=== PATIENT | female | born 1990 | race Caucasian/White ===

== ENCOUNTER 2020-08-13 09:33 | Emergency (ER) | payer OTHER ==
[2020-08-13 09:50] VITALS: BP 118/73
--- NOTE | 2020-08-13 09:50 | ED Physician Documentation ---
PD HPI SKIN - Stated complaint Stated Complaint: FEMALE - Chief complaint Chief Complaint: Wound - History obtained from History obtained from: Patient - History of Present Illness Timing - onset: How many weeks ago (1) Timing - duration: Weeks (1) Timing - details: Gradual onset, Still present Location: Other (above the anus) Quality / character: Itchy, Burning, Discolored. No: Vesicular, Crusted Associated symptoms: No: Fever, Myalgias, Joint pain Similar symptoms before: Has not had sx before Recently seen: Not recently seen - Additional information Additional information: 30-year-old female reports a one-week history of an area right above her anus that is reddened and itchy and burning.This is been present for about 1 week and has not resolved. She has not had this previously. She states she feels like this is something similar to what her baby has with a diaper rash. Review of Systems Constitutional: denies: Fever Ears: denies: Ear pain Nose: denies: Congestion Throat: denies: Sore throat Respiratory: denies: Dyspnea, Cough GI: denies: Vomiting : denies: Dysuria PD PAST MEDICAL HISTORY - Present Medications Home Medications: Ambulatory Orders Medication Instructions Recorded Confirmed Fluconazole [Diflucan] 150 mg PO ONCE #2 tablet 08/13/20 - Allergies Allergies/Adverse Reactions: Allergies Allergy/AdvReac Type Severity Reaction Status Date / Time No Known Drug Allergies Allergy Verified 08/13/20 09:38 PD ED PE NORMAL - Vitals Vital signs reviewed: Yes (normal ) - General General: Alert and oriented X 3, No acute distress, Well developed/nourished - HEENT HEENT: Atraumatic, PERRL, EOMI - Respiratory Respiratory: No respiratory distress - 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 ) - Back Back: No CVA TTP, No spinal TTP - Derm Derm: Normal color, Warm and dry, No rash - Extremities Extremities: No deformity, No edema, No calf tenderness / cord - Neuro Neuro: No motor deficit, No sensory deficit Eye Opening: Spontaneous Motor: Obeys Commands Verbal: Oriented GCS Score: 15 - Psych Psych: Normal mood, Normal affect Results - Vitals Vitals: Vital Signs - 24 hr 08/13/20 09:36 Temperature 36.8 C Heart Rate 63 Respiratory 15 Rate Blood Pressure 118/73 O2 Saturation 100 Oxygen O2 Source Room air PD MEDICAL DECISION MAKING - ED course Complexity details: considered differential, d/w patient ED course: Looks like a yeast dermatitis we will place the patient on some Diflucan. Departure - Departure Disposition: Home, Self Care Clinical Impression: Yeast dermatitis Condition: Stable Instructions: ED Diaper Rash Infec Fungal Follow-Up: [facility] [Provider Group] Prescriptions: Fluconazole [Diflucan] 150 mg PO ONCE #2 tablet
== END 2020-08-13 10:05 | disposition home or self-care (01) ==
LOC: ED 09:33
DX: L30.9 Dermatitis, unspecified (principal); B37.2 Candidiasis of skin and nail
CPT/HCPCS: 99282; 99284

== ENCOUNTER 2020-11-28 08:00 | Outpatient (CLI) | payer OTHER ==
[2020-11-28 19:37] LABS: MUDS CUTOFF CONCENTRATIONS CUTOFF CONC BELOW:
[2020-11-28 19:42] LABS: BILIRUBIN,URINE NEGATIVE (NEGATIVE); GLUCOSE, URINE (UA) NEGATIVE (NEGATIVE); KETONES,URINE (UA) NEGATIVE (NEGATIVE); LEUKOCYTE ESTERASE, URINE NEGATIVE (NEGATIVE); NITRITE,URINE NEGATIVE (NEGATIVE); OCCULT BLOOD,URINE NEGATIVE (NEGATIVE); PH,URINE 5.5 PH (5.0-7.5); PROTEIN,URINE NEGATIVE (NEGATIVE); UROBILINOGEN,URINE 0.2 (NORMAL) E.U./dL (NORMAL)
[2020-11-28 19:44] LABS: CLARITY,URINE CLEAR (CLEAR)
[2020-11-28 19:55] LABS: AMPHETAMINE SCREEN,URINE NEGATIVE (NEGATIVE); BENZODIAZEPINES SCREEN, URINE NEGATIVE (NEGATIVE); COCAINE SCREEN URINE NEGATIVE (NEGATIVE); METHADONE SCREEN, URINE NEGATIVE (NEGATIVE); METHAMPHETAMINES SCREEN, URINE NEGATIVE (NEGATIVE); OPIATE SCREEN, URINE NEGATIVE (NEGATIVE); OXYCODONE SCREEN, URINE NEGATIVE (NEGATIVE); PROPOXYPHENE SCREEN, URINE NEGATIVE (NEGATIVE); TRICYCLIC ANTIDEPRESSANT,URINE NEGATIVE (NEGATIVE)
[2020-11-28 20:00] LABS: BACTERIA,URINE Rare /HPF (None Seen); RBC,URINE 0-5 /HPF (0-5); SQUAMOUS EPITHELIAL CELL,UR FEW Squamous (<= Few)
[2020-11-29 00:17] LABS: TRICHOMONAS VAGINALIS DNA NEGATIVE (NEGATIVE)
[2020-11-29 00:30] LABS: CANDIDA GROUP DNA NEGATIVE (NEGATIVE); CANDIDA KRUSEI DNA NEGATIVE (NEGATIVE); TRICHOMONAS VAGINALIS DNA NEGATIVE (NEGATIVE)
== END 2020-11-28 23:59 | disposition home or self-care (01) ==
LOC: LAB.R 08:00
PROVIDERS: ATTEND Nurse Practitioner Obstetrics & Gynecology
DX: Z32.01 Encounter for pregnancy test, result positive (principal); N89.8 Other specified noninflammatory disorders of vagina
CPT/HCPCS: 80306; 81001; 87086; 87491; 87591; 87661; 87801

== ENCOUNTER 2020-12-02 13:59 | Outpatient (CLI) | payer OTHER | END 2020-12-02 14:00 | disposition home or self-care (01) | LOC: LAB.N 13:59 | PROVIDERS: ATTEND Nurse Practitioner Obstetrics & Gynecology | DX: Z32.01 Encounter for pregnancy test, result positive (principal); Z86.39 Personal history of other endocrine, nutritional and metabolic disease | CPT/HCPCS: 36415; 84443 ==

== ENCOUNTER 2020-12-23 12:27 | Outpatient (CLI) | payer OTHER ==
--- NOTE | 2020-12-23 14:04 | Ultrasound Report ---
PROCEDURE: OB First Trimester w/TV INDICATIONS: POSITIVE TEST OUTSIDE/PRIOR DATING DATA: Last menstrual period (LMP): 10/28/2020. LMP-based estimated date of delivery (HIPOLITO): 08/04/2021. First dating scan (date and location): 12/23/2020. Estimated date of delivery (HIPOLITO) from first dating scan: 08/09/2021. TECHNIQUE: Real-time scanning was performed of the fetus and maternal pelvic organs, with image documentation. Endovaginal scanning was also performed to better visualize the fetus and maternal ovaries. COMPARISON: FINDINGS: Embryo: There is a gestational sac in the uterine fundus measuring 3.4 cm in mean sac diameter (daria esponding to a gestational age of 8 weeks 4 days). Within the gestational sac there is a fetus measur ing 1.1 cm (corresponding to a gestational age of 7 weeks 2 days). heart rate is detected at 13 5 bpm. Maternal organs: Ovaries are normal. Right corpus luteum cyst noted. Hypoechoic focus in the uterus adjacent to the placenta measuring 2.2 cm. IMPRESSION: Single live intrauterine gestation with average ultrasound age of 7 weeks 2 days. Focal hypoechoic region in the uterus adjacent to the placenta could represent a subchorionic hemorrh age, of indeterminate clinical significance at this gestational age. Reviewed by: Maco Aldrich MD on 12/23/2020 2:03 PM PST Approved by: Maco Aldrich MD on 12/23/2020 2:03 PM PST Station ID: [id number]
== END 2020-12-23 12:28 | disposition home or self-care (01) ==
LOC: DI 12:27
PROVIDERS: ATTEND Nurse Practitioner Obstetrics & Gynecology
DX: Z32.01 Encounter for pregnancy test, result positive (principal)

== ENCOUNTER 2021-01-12 14:33 | Outpatient (CLI) | payer OTHER ==
[2021-01-12 18:21] LABS: BASOPHILS % (AUTO) 0.3 %; EOSINOPHILS # (AUTO) 0.4 10^3/uL (0.0-0.7); HCT - HEMATOCRIT 36.5 % (37.0-47.0); HGB - HEMOGLOBIN 12.1 g/dL (12.0-16.0); LYMPHOCYTES # (AUTO) 2.3 10^3/uL (1.5-3.5); LYMPHOCYTES % (AUTO) 23.8 %; MEAN CORPUSCULAR HEMOGLOBIN 29.2 pg (27.0-31.0); MEAN CORPUSCULAR HGB CONC 33.2 g/dL (32.0-36.0); MEAN CORPUSCULAR VOLUME 88.2 fL (81.0-99.0); MEAN PLATELET VOLUME 9.7 fL (7.9-10.8); MONOCYTES # (AUTO) 0.5 10^3/uL (0.0-1.0); MONOCYTES % (AUTO) 5.6 %; NEUTROPHILS # (AUTO) 6.2 10^3/uL (1.5-6.6); NEUTROPHILS % (AUTO) 65.1 %; PLT - PLATELET COUNT 380 10^3/uL (130-450); RED BLOOD COUNT 4.14 10^6/uL (4.20-5.40); WHITE BLOOD COUNT 9.5 x10^3/uL (4.8-10.8)
[2021-01-13 12:25] LABS: HEPATITIS B SURFACE ANTIGEN NON-REACTIVE (NON-REACTIVE); HEPATITIS C ANTIBODY NON-REACTIVE (NON-REACTIVE)
[2021-01-13 15:51] LABS: HIV AG/AB 4TH GEN NON-REACTIVE (NON-REACTIVE)
== END 2021-01-12 14:34 | disposition home or self-care (01) ==
LOC: LAB.N 14:33
PROVIDERS: ATTEND Advanced Practice Midwife
DX: Z34.90 Encounter for supervision of normal pregnancy, unspecified, unspecified trimester (principal); Z36.89 Encounter for other specified antenatal screening
CPT/HCPCS: 36415; 85025; 86592; 86762; 86787; 86803; 86850; 86900; 86901; 87340; 87389

== ENCOUNTER 2021-01-21 21:06 | Emergency (ER) | payer OTHER ==
--- NOTE | 2021-01-21 21:34 | ED Physician Documentation ---
PD HPI NVD - Stated complaint Stated Complaint: VOMITING - Chief complaint Chief Complaint: General - History obtained from History obtained from: Patient - History of Present Illness Timing - onset: Today (tonight) Timing - details: Abrupt onset Pain level max: 0 Pain level now: 0 Associated symptoms: Hematemesis. No: Fever, Abdominal pain Recently seen: Not recently seen - Additonal information Additional information: patient is 12.5 weeks , has had US in this demonstrating IUP (per patient) and has had recurrent nausea/vomiting in this . tonight she had two episodes of hematemesis. She denies abdominal pain and on HPI/ROS she denies having nausea at this time Review of Systems Constitutional: denies: Fever, Chills, Sweats Cardiac: reports: Reviewed and negative Respiratory: reports: Reviewed and negative GI: reports: Nausea, Vomiting, Hematemesis. denies: Abdominal Pain, Abdominal Swelling, Constipation, Diarrhea, Bloody / black stool : reports: Now EGA (12.5 weeks). denies: Dysuria, Frequency, Vaginal bleeding PD PAST MEDICAL HISTORY - Past Medical History Past Medical History: No - Past Surgical History Past Surgical History: No - Present Medications Home Medications: Ambulatory Orders Medication Instructions Recorded Confirmed Meclizine HCl [Antivert] 25 mg PO PRN PRN 01/21/21 01/21/21 Ondansetron Odt [Zofran Odt] 4 mg TL Q6H PRN 01/21/21 01/21/21 - Allergies Allergies/Adverse Reactions: Allergies Allergy/AdvReac Type Severity Reaction Status Date / Time No Known Drug Allergies Allergy Verified 01/21/21 21:24 - Social History Does the pt smoke?: No Smoking Status: Never smoker Does the pt drink ETOH?: Yes Does the pt have substance abuse?: No - Immunizations Immunizations are current?: Yes - POLST Patient has POLST: No PD ED PE NORMAL - Vitals Vital signs reviewed: Yes - General General: Alert and oriented X 3, No acute distress, Well developed/nourished - Cardiac Cardiac: RRR, No murmur - Respiratory Respiratory: No respiratory distress, Clear bilaterally - Abdomen Abdomen: Soft, Non tender, Non distended - Back Back: No CVA TTP Results - Vitals Vitals: Vital Signs - 24 hr 01/21/21 01/21/21 01/21/21 21:14 21:31 23:41 Temperature 36.9 C 36.9 C Heart Rate 92 92 64 Respiratory 18 18 18 Rate Blood Pressure 117/81 H 117/81 H 106/77 O2 Saturation 99 99 100 Oxygen O2 Source Room air - Labs Labs: Laboratory Tests 01/21/21 01/21/21 01/21/21 22:00 22:11 22:11 WBC 10.5 RBC 4.34 Hgb 12.7 Hct 37.8 MCV 87.1 MCH 29.3 MCHC 33.6 RDW 13.2 Plt Count 379 MPV 9.2 Neut # (Auto) 7.4 H Lymph # (Auto) 2.3 [place] # (Auto) 0.5 Eos # (Auto) 0.3 Baso # (Auto) 0.0 Absolute Nucleated RBC 0.00 Nucleated RBC % 0.0 Sodium 135 Potassium 3.4 L Chloride 100 L Carbon Dioxide 24 Anion Gap 11.0 BUN 8 Creatinine 0.5 Estimated GFR (MDRD) 145 Glucose 103 H Calcium 9.2 Total Bilirubin 0.4 AST 14 ALT 16 Alkaline Phosphatase 39 L Total Protein 7.5 Albumin 3.9 Globulin 3.6 Albumin/Globulin Ratio 1.1 Lipase 25 Urine Color YELLOW Urine Clarity CLEAR Urine pH 6.0 Ur Specific Rosine 1.025 Urine Protein NEGATIVE Urine Glucose (UA) NEGATIVE Urine Ketones TRACE Urine Occult Blood NEGATIVE Urine Nitrite NEGATIVE Urine Bilirubin NEGATIVE Urine Urobilinogen 0.2 (NORMAL) Ur Leukocyte Esterase NEGATIVE Ur Microscopic Review NOT INDICATED Urine Culture Comments NOT INDICATED PD MEDICAL DECISION MAKING - ED course Complexity details: reviewed results, re-evaluated patient, considered differential, d/w patient ED course: no n/v during ED stay. She is nontender on abdominal exam and in NAD during ED stay. She has reassuring blood tests tonight including normal h/h. Departure - Departure Disposition: 01 Home, Self Care Clinical Impression: Hematemesis Qualifiers: Nausea presence: with nausea Qualified Code(s): K92.0 - Hematemesis Condition: Good Instructions: ED Bleed UGI Stable, ED Nausea Vomiting Follow-Up: Venecia Pearce PA-C [Primary Care Provider] - Discharge Date/Time: 01/21/21 23:41
[2021-01-21] MEDS ORDERED: SODIUM CHLORIDE 0.9% 1,000 ML IV STA (21:52)
[2021-01-21 22:17] LABS: BASOPHILS % (AUTO) 0.4 %; EOSINOPHILS # (AUTO) 0.3 10^3/uL (0.0-0.7); EOSINOPHILS % (AUTO) 2.8 %; HCT - HEMATOCRIT 37.8 % (37.0-47.0); HGB - HEMOGLOBIN 12.7 g/dL (12.0-16.0); LYMPHOCYTES # (AUTO) 2.3 10^3/uL (1.5-3.5); LYMPHOCYTES % (AUTO) 21.5 %; MEAN CORPUSCULAR HEMOGLOBIN 29.3 pg (27.0-31.0); MEAN CORPUSCULAR HGB CONC 33.6 g/dL (32.0-36.0); MEAN CORPUSCULAR VOLUME 87.1 fL (81.0-99.0); MEAN PLATELET VOLUME 9.2 fL (7.9-10.8); MONOCYTES # (AUTO) 0.5 10^3/uL (0.0-1.0); MONOCYTES % (AUTO) 4.8 %; NEUTROPHILS # (AUTO) 7.4 10^3/uL (1.5-6.6); NEUTROPHILS % (AUTO) 70.3 %; PLT - PLATELET COUNT 379 10^3/uL (130-450); RED BLOOD COUNT 4.34 10^6/uL (4.20-5.40); RED CELL DISTRIBUTION WIDTH 13.2 % (12.0-15.0); WHITE BLOOD COUNT 10.5 x10^3/uL (4.8-10.8)
[2021-01-21 22:27] LABS: BILIRUBIN,URINE NEGATIVE (NEGATIVE); CLARITY,URINE CLEAR (CLEAR); GLUCOSE, URINE (UA) NEGATIVE (NEGATIVE); KETONES,URINE (UA) TRACE mg/dL (NEGATIVE); LEUKOCYTE ESTERASE, URINE NEGATIVE (NEGATIVE); NITRITE,URINE NEGATIVE (NEGATIVE); OCCULT BLOOD,URINE NEGATIVE (NEGATIVE); PROTEIN,URINE NEGATIVE (NEGATIVE); UROBILINOGEN,URINE 0.2 (NORMAL) E.U./dL (NORMAL)
[2021-01-21 22:30] LABS: ALBUMIN 3.9 g/dL (3.2-5.5); ALBUMIN/GLOBULIN RATIO 1.1 (1.0-2.2); BILIRUBIN,TOTAL 0.4 mg/dL (0.2-1.0); CALCIUM 9.2 mg/dL (8.5-10.3); CREATININE 0.5 mg/dL (0.4-1.0); POTASSIUM 3.4 mmol/L (3.5-5.0); TOTAL PROTEIN 7.5 g/dL (6.7-8.2)
[2021-01-21 23:42] VITALS: BP 106/77
== END 2021-01-21 23:41 | disposition home or self-care (01) ==
LOC: ED 21:06
DX: O21.9 Vomiting of pregnancy, unspecified (principal); Z3A.12 12 weeks gestation of pregnancy
CPT/HCPCS: 36415; 80053; 81001; 81003; 83690; 85025; 87086; 99282; 99283

== ENCOUNTER 2021-03-20 07:18 | Outpatient (CLI) | payer OTHER ==
--- NOTE | 2021-03-20 16:40 | Ultrasound Report ---
PROCEDURE: OB Detailed Eval INDICATIONS: SUPERVISION OF OUTSIDE/PRIOR DATING DATA: Last menstrual period (LMP): 10/28/2020. LMP-based estimated date of delivery ([facility]IPOLITO): 08/04/2021. First dating scan (date and location): 12/23/2020. Estimated date of delivery ([facility]IPOL[facility]) from first dating scan: 08/09/2021. TECHNIQUE: Real-time scanning was performed of the fetus, with image documentation and biometric measurements. Endovaginal scanning: Not needed COMPARISON: Single prior OB ultrasound studies for this . FINDINGS: General: A single living intrauterine gestation is present. Presentation: Breech Placenta: Placental position is anterior, without previa. Amniotic fluid index: 21.0 cm, normal for gestational age. heart rate: 143 beats per minute. Maternal cervical canal: 4.6 cm long; normal length is 2.5 cm or more. biometrics: Biparietal diameter: Or 0.9 cm, 20 weeks 5 days Head circumference: 18.3 cm, 20 weeks 5 days Abdominal circumference: 16.8 cm, 21 weeks 6 days Femur length: 3.3 cm, 20 weeks 3 days Estimated gestational age from initial scan: 19 weeks 5 days. Composite gestational age from present scan: 20 weeks 6 days Estimated weight and percentile: 401 g, upper 99th percentile. Measurement variability in biometric dating: +/- 10 days from 12-20 weeks gestation, +/- 2 weeks from 20-30 weeks gestation, +/- 3 weeks at 30 weeks gestation or later. Anatomic survey: Neuro: Ventricles are normal at less than 10 mm. Cisterna magna is normal at 3-11 mm. Cerebellum i s normal in size and morphology. Nuchal skin fold: Normal at less than 6 mm between 14 and 20 weeks gestational age. Face: Nose and lips, facial profile are normal. Spine: No evidence for spina bifida. Heart: 4-chambered heart is present, with normal ventricular outflow tracts. Diaphragm: Diaphragm is intact. Stomach: Left-sided stomach is present. Kidneys: No hydronephrosis. Normal is less than 5 mm in 2nd trimester, less than 7 mm in 3rd trimester. Cord: 3 vessel cord has orthotopic insertion. Bladder: Normal in size. Extremities: All 4 extremities are visualized. IMPRESSION: Appropriate interval growth except that the weight is currently estimated at the upper 99th per centile. Please correlate for presence of gestational diabetes and follow-up growth parameters are re commended to be obtained in 2 weeks. Normal amniotic fluid volume. No anomaly seen. Reviewed by: Omer Daugherty MD on 03/20/2021 4:39 PM PDT Approved by: Omer Daugherty MD on 03/20/2021 4:39 PM PDT Station ID: [id number]
== END 2021-03-20 07:19 | disposition home or self-care (01) ==
LOC: DI 07:18
PROVIDERS: ATTEND Nurse Practitioner Obstetrics & Gynecology
DX: Z34.90 Encounter for supervision of normal pregnancy, unspecified, unspecified trimester (principal)

== ENCOUNTER 2021-04-28 11:16 | Outpatient (CLI) | payer OTHER ==
[2021-04-28 13:30] LABS: HGB - HEMOGLOBIN 10.9 g/dL (12.0-16.0); MEAN CORPUSCULAR HEMOGLOBIN 28.8 pg (27.0-31.0); MEAN CORPUSCULAR HGB CONC 32.1 g/dL (32.0-36.0); MEAN CORPUSCULAR VOLUME 89.7 fL (81.0-99.0); MEAN PLATELET VOLUME 9.1 fL (7.9-10.8); RED BLOOD COUNT 3.79 10^6/uL (4.20-5.40); WHITE BLOOD COUNT 11.8 x10^3/uL (4.8-10.8)
== END 2021-04-28 11:17 | disposition home or self-care (01) ==
LOC: LAB 11:16
PROVIDERS: ATTEND Advanced Practice Midwife
DX: Z34.90 Encounter for supervision of normal pregnancy, unspecified, unspecified trimester (principal)
CPT/HCPCS: 36415; 82950; 85027

== ENCOUNTER 2021-05-05 06:11 | Outpatient (CLI) | payer OTHER ==
[2021-05-05 06:47] LABS: GTT GLUCOSE,FASTING 88 mg/dL (70-100)
== END 2021-05-05 06:12 | disposition home or self-care (01) ==
LOC: LAB 06:11
PROVIDERS: ATTEND Advanced Practice Midwife
DX: O99.810 Abnormal glucose complicating pregnancy (principal)
CPT/HCPCS: 36415; 82951; 82952

== ENCOUNTER 2021-06-24 07:27 | Outpatient (CLI) | payer OTHER ==
--- NOTE | 2021-06-24 08:38 | Ultrasound Report ---
PROCEDURE: OB F/U or Repeat INDICATIONS: SIZE/DATE DISCREPANCY OUTSIDE/PRIOR DATING DATA: Last menstrual period (LMP): 10/28/2020. LMP-based estimated date of delivery (HIPOLITO): 08/04/2021. First dating scan (date and location): 12/23/2020. Mitchel Maldonado. Estimated date of delivery ([facility]IPOLITO) from first dating scan: 08/09/2021. The below data below was generated using the provider HIPOLITO of 08/09/2021 TECHNIQUE: Real-time scanning was performed of the fetus, with image documentation and biometric measurements. COMPARISON: None. FINDINGS: General: A single living intrauterine gestation is present. Presentation: Cephalic Placenta: Placental position is anterior, without previa. Amniotic fluid index: 17.2 cm, adequate for gestational age. Largest pocket is 4.7 cm. heart rate: 136 beats per minute. Maternal cervical canal: 4.8 cm long; normal length is 2.5 cm or more. biometrics: Biparietal diameter: 9.4 cm. 38 weeks 2 days Head circumference: 34.1 cm. 39 weeks 2 days Abdominal circumference: 34.2 cm. 38 weeks 0 Femur length: 6.5 cm. 33 weeks 5 days. Estimated gestational age from initial scan: not applicable. Composite gestational age from present scan: 37 weeks 2 days. Estimated weight and percentile: 3145 g. Greater than 99.5 percentile Measurement variability in biometric dating: +/- 10 days from 12-20 weeks gestation, +/- 2 weeks from 20-30 weeks gestation, +/- 3 weeks at 30 weeks gestation or more. Other: Not applicable. IMPRESSION: 1. Estimated gestational age by initial ultrasound 33 weeks 3 days. 2. Composite gestational age by today's ultrasound 37 weeks 2 days. 3. EFW 3145 g (greater than 99.5th percentile.) Reviewed by: Aamir Burdick on 06/24/2021 8:37 AM PDT Approved by: Aamir Burdick on 06/24/2021 8:37 AM PDT Station ID: [id number]
== END 2021-06-24 07:28 | disposition home or self-care (01) ==
LOC: DI 07:27
PROVIDERS: ATTEND Nurse Practitioner Obstetrics & Gynecology
DX: O26.843 Uterine size-date discrepancy, third trimester (principal); Z3A.33 33 weeks gestation of pregnancy

== ENCOUNTER 2021-07-07 10:00 | Outpatient (CLI) | payer OTHER | END 2021-07-07 10:01 | disposition home or self-care (01) | LOC: LAB.WC 10:00 | PROVIDERS: ATTEND Nurse Practitioner Obstetrics & Gynecology | DX: Z36.85 Encounter for antenatal screening for Streptococcus B (principal) | CPT/HCPCS: 87797 ==

== ENCOUNTER 2021-07-21 15:53 | Outpatient (CLI) | payer OTHER ==
--- NOTE | 2021-07-22 11:27 | Ultrasound Report ---
PROCEDURE: OB F/U or Repeat INDICATIONS: UTERINE SIZE/DATE DISCREPANCY OUTSIDE/PRIOR DATING DATA: Last menstrual period (LMP): 10/28/2020. LMP-based estimated date of delivery (HIPOLITO): 08/04/2021. First dating scan (date and location): 12/23/2020. Estimated date of delivery (HIPOLITO) from first dating scan: 08/09/2021. The below data below was generated using the first trimester ultrasound HIPOLITO of 08/09/2021 TECHNIQUE: Real-time scanning was performed of the fetus, with image documentation and biometric measurements. Endovaginal scanning: Not performed COMPARISON: 12/23/2020, 06/24/2021 FINDINGS: General: A single living intrauterine gestation is present. Presentation: Vertex Placenta: Placental position is anterior, without previa. Amniotic fluid index: 17.8 cm, normal for gestational age. Largest pocket is 5.95 cm. heart rate: 133 beats per minute. Maternal cervical canal: Not seen biometrics: Biparietal diameter: 9.9 cm, 40 weeks, 3 days Head circumference: 35.6 cm, 41 weeks, 5 days Abdominal circumference: 37.4 cm, 41 weeks, 2 days Femur length: 7.2 cm, 36 weeks, 6 days Estimated gestational age from initial scan: 37 weeks, 2 days. Composite gestational age from present scan: 40 weeks, 1 day Estimated weight and percentile: 4086 g, 99.5th percentile Measurement variability in biometric dating: +/- 10 days from 12-20 weeks gestation, +/- 2 weeks from 20-30 weeks gestation, +/- 3 weeks at 30 weeks gestation or more. Other: Nuchal cord incidentally noted.. IMPRESSION: 1. Single living intrauterine with a composite gestational age of 40 weeks 1 day, compared to the initially assigned gestational age of 37 weeks, 2 days. 2. Estimated weight is at the 99.5th percentile. 3. Amniotic fluid index is normal. Reviewed by: Alta Villasenor MD on 07/22/2021 11:25 AM PDT Approved by: Alta Villasenor MD on 07/22/2021 11:25 AM PDT Station ID: [id number]
== END 2021-07-21 15:54 | disposition home or self-care (01) ==
LOC: DI 15:53
PROVIDERS: ATTEND Nurse Practitioner Obstetrics & Gynecology
DX: O26.843 Uterine size-date discrepancy, third trimester (principal); Z3A.40 40 weeks gestation of pregnancy

== ENCOUNTER 2021-07-29 08:55 | Observation (INO) | payer OTHER ==
[2021-07-29] MEDS ORDERED: SODIUM CHLORIDE FLUSH 0.9% 10 ML SYRINGE IVP PRN (09:16)
[2021-07-29 09:29] VITALS: BP 114/70
[2021-07-29] MEDS ORDERED: LACTATED RINGERS 1,000 ML IV SCH (10:00)
[2021-07-29] MEDS ORDERED: miSOPROStoL 100 MCG TABLET BC SCH (10:00)
[2021-07-29] MEDS ORDERED: SODIUM CHLORIDE FLUSH 0.9% 10 ML SYRINGE IVP SCH (17:00)
--- NOTE | 2021-07-29 17:28 | PROVIDER PROGRESS NOTE ---
- HPI Chief Complaint: Other Current : Current EDU 08/04/21 Gestation 39 Weeks and 1 Days 3 Para 1 Vital Signs Temperature 36.7 C 07/29/21 09:26 Heart Rate 96 07/29/21 09:26 Respiratory Rate 16 07/29/21 09:26 Blood Pressure 114/70 07/29/21 09:26 O2 Saturation 98 07/29/21 09:26 Temperature 36.7 C 07/29/21 09:43 Heart Rate 96 07/29/21 09:43 Respiratory Rate 16 07/29/21 09:43 Blood Pressure 114/70 07/29/21 09:43 O2 Saturation 98 07/29/21 09:26 - Procedures OB Procedure Performed: NST Diagnosis/Indication for NST: Other NST Procedure: NST Procedure Start Date 07/29/21 Start Time 09:07 Stop Time 09:29 Vibroacoustic Stimulation Used No Patient States Movement Yes - Plan Plan: Ananya is a 31yo @ 39.1wks gestation by LMP c/w 7.2wk U/S who presents today for outpatient cervical ripening with misoprostol. She denies vaginal bleeding or leakage of fluid and she states she has had occasional but very mild contractions. Reports +FM. NST performed 07/29/2021 NST read 07/29/2021 FHR baseline 140, moderate variability, + accels, no decels Contractions palpate mild occasionally with soft resting tone SVE initially deferred. IV access obtained. 50mcg BC misoprostol administered and pt continuously monitored x 4 hours. She began to contract with contractions patter consistently every 2-4 minutes with soft resting tone. Pt states she notices the contractions but rates them 1.5/10 on a pain scale and does not feel they are very strong. She easily talks through the contractions and states she would desire to labor at home for early labor if possible. SVE 1/50/-3 FHR Category I throughout 4 hours. Reviewed labor precautions and warning s/sx for when to present. Pt has emergency contact number. She verbalized understanding and agrees to above plan. She denies further questions or concerns at this time. Pt to return tomorrow morning at 0900 for induction of labor secondary to suspected macrosomia.
== END 2021-07-29 15:00 | disposition home or self-care (01) ==
LOC: WFO 08:55 → FBP 08:56 → WFO 09:15 → FBP 09:16
PROVIDERS: ADMIT Nurse Practitioner Obstetrics & Gynecology; ATTEND Nurse Practitioner Obstetrics & Gynecology
DX: Z34.83 Encounter for supervision of other normal pregnancy, third trimester (principal)
CPT/HCPCS: 59025; 99212

== ENCOUNTER 2021-07-29 22:30 | Inpatient (IN) | payer OTHER ==
[2021-07-29] MEDS ORDERED: LACTATED RINGERS 1,000 ML IV ONE (23:01)
[2021-07-29] MEDS ORDERED: OXYTOCIN/SODIUM CHLORIDE 500 ML IV PRN (23:17)
[2021-07-29] MEDS ORDERED: TRANEXAMIC ACID IN NACL 1,000 MG/100 ML BAG IV PRN (23:17)
[2021-07-29] MEDS ORDERED: SODIUM CHLORIDE FLUSH 0.9% 10 ML SYRINGE IVP PRN (23:17)
[2021-07-29] MEDS ORDERED: miSOPROStoL 200 MCG TABLET BC PRN (23:17)
[2021-07-29] MEDS ORDERED: CARBOPROST TROMETHAMINE 250 MCG/ML AMP IM PRN (23:17)
[2021-07-29] MEDS ORDERED: LIDOCAINE-MPF 1% 30 ML VIAL ID PRN (23:17)
[2021-07-29] MEDS ORDERED: OXYTOCIN 10 UNIT/ML VIAL IM PRN (23:17)
[2021-07-29] MEDS ORDERED: METHYLERGONOVINE 0.2 MG/ML VIAL IM PRN (23:17)
[2021-07-29 23:25] LABS: BASOPHILS % (AUTO) 0.3 %; EOSINOPHILS # (AUTO) 0.1 10^3/uL (0.0-0.7); EOSINOPHILS % (AUTO) 0.5 %; HCT - HEMATOCRIT 37.7 % (37.0-47.0); HGB - HEMOGLOBIN 11.6 g/dL (12.0-16.0); LYMPHOCYTES # (AUTO) 2.1 10^3/uL (1.5-3.5); LYMPHOCYTES % (AUTO) 16.6 %; MEAN CORPUSCULAR HEMOGLOBIN 24.5 pg (27.0-31.0); MEAN CORPUSCULAR HGB CONC 30.8 g/dL (32.0-36.0); MEAN CORPUSCULAR VOLUME 79.5 fL (81.0-99.0); MEAN PLATELET VOLUME 11.5 fL (7.9-10.8); MONOCYTES # (AUTO) 0.9 10^3/uL (0.0-1.0); MONOCYTES % (AUTO) 6.6 %; NEUTROPHILS # (AUTO) 9.6 10^3/uL (1.5-6.6); NEUTROPHILS % (AUTO) 75.2 %; PLT - PLATELET COUNT 304 10^3/uL (130-450); RED BLOOD COUNT 4.74 10^6/uL (4.20-5.40); RED CELL DISTRIBUTION WIDTH 14.3 % (12.0-15.0); WHITE BLOOD COUNT 12.8 x10^3/uL (4.8-10.8)
[2021-07-29] MEDS ORDERED: ROPIVACAINE 0.2% 200 MG/100 ML BAG EP ONE (23:31)
[2021-07-29] MEDS ORDERED: LACTATED RINGERS 1,000 ML IV SCH (23:45)
--- NOTE | 2021-07-29 23:53 | ANESTHESIA ---
Pre-Anesthesia VS, & Labs - Diagnosis active labor - Procedure vaginal delivery Height: 5 ft 7 in Weight (kg): 71.3 kg Body Mass Index: 24.6 BMI Classification: Healthy weight - NPO Other (labor, clear liquids) - Is Patient ?: Yes - Lab Results Current Lab Results: Laboratory Tests 07/29/21 23:00: WBC 12.8 H, RBC 4.74, Hgb 11.6 L, Hct 37.7, MCV 79.5 L, MCH 24.5 L, MCHC 30.8 L, RDW 14.3, Plt Count 304, MPV 11.5 H, Neut # (Auto) 9.6 H, Lymph # (Auto) 2.1, [place] # (Auto) 0.9, Eos # (Auto) 0.1, Baso # (Auto) 0.0, Absolute Nucleated RBC 0.00, Nucleated RBC % 0.0 Fish Bones: 07/29/21 23:00 Home Medications and Allergies Active Medications Carboprost Tromethamine (Carboprost Tromethamine 250 Mcg/Ml Amp) 250 mcg IM Q15M PRN PRN Reason: Step 4: Hemorrhage protocol Stop: 08/03/21 23:18 Oxytocin/Sodium Chloride (Pitocin/Sodium Chloride) 500 mls @ 999 mls/hr IV PRN PRN; Protocol PRN Reason: POST- HEMORR PREVENTION Stop: 08/03/21 23:18 Tranexamic Acid (Tranexamic 1,000 Mg/100ml-Nacl) 1,000 mg in 100 mls @ 600 mls/hr IV .ONCE PRN PRN Reason: EBL >1200mL and within 3hr Stop: 08/03/21 23:18 Lactated Ringer's (Lr) 1,000 mls @ 150 mls/hr IV .Q6H40M CHRIS Lidocaine HCl (Lidocaine-Mpf 1% 30 Ml Vial) 30 ml ID .ONCE PRN PRN Reason: PERINEAL REPAIR Stop: 08/03/21 23:18 Methylergonovine Maleate (Methylergonovine 0.2 Mg/Ml Vial) 0.2 mg IM .ONCE PRN PRN Reason: Step 2: Hemorrhage protocol Stop: 08/03/21 23:18 Misoprostol (Misoprostol 200 Mcg Tablet) 800 mcg BC .ONCE PRN PRN Reason: Step 3: Hemorrhage protocol Stop: 08/03/21 23:18 Oxytocin (Oxytocin 10 Unit/Ml Vial) 10 unit IM .ONCE PRN PRN Reason: Step one: If no IV access Stop: 08/03/21 23:18 Sodium Chloride (Sodium Chloride Flush 0.9% 10 Ml Syringe) 10 ml IVP PRN PRN PRN Reason: NEEDED PER PROVIDER ORDERS Sodium Chloride (Sodium Chloride Flush 0.9% 10 Ml Syringe) 10 ml IVP 0100,0900,1700 CHRIS Meclizine HCl [Antivert] 25 mg PO PRN PRN 01/21/21 Ondansetron Odt [Zofran Odt] 4 mg TL Q6H PRN 01/21/21 Allergies/Adverse Reactions: Allergies Allergy/AdvReac Type Severity Reaction Status Date / Time No Known Drug Allergies Allergy Verified 01/21/21 21:24 Anes History & Medical History - Medical History Cardiovascular: reports: None Pulmonary: reports: None Gastrointestinal: reports: None Urinary: reports: None Neuro: reports: None Musculoskeletal: reports: None Endocrine/Autoimmune: reports: None Blood Disorders: reports: None Skin: reports: None Smoking Status: Never smoker Psychosocial: reports: No issues indicated History of Cancer?: No - Obstetrical History : 3 Parity: 1 Events: reports: None Complications: reports: None Problems: possible macrosomia Exam General: Alert, Oriented x3, Cooperative, No acute distress Dental: WNL Mouth Openin Fingerbreadth Neck Mobility: Normal Mallampati classification: II Thyromental Distance: 4-6 cm Mental/Cognitive Status: Alert/Oriented X3, Normal for patient Plan Anesthesia Type: Epidural Consent for Procedure(s) Verified and Reviewed: Yes Code Status: Attempt Resuscitation ASA classification: 2-Mild systemic disease Is this case an emergency?: No
[2021-07-29] MEDS ORDERED: NALBUPHINE 10 MG/ML AMP IVP PRN (23:54)
[2021-07-29] MEDS ORDERED: ROPIVACAINE 0.2% 200 MG/100 ML BAG EP PRN (23:54)
[2021-07-29] MEDS ORDERED: ONDANSETRON 4 MG/2 ML VIAL IVP PRN (23:54)
[2021-07-30] MEDS ORDERED: SODIUM CHLORIDE 0.9% 10 ML VIAL IVP ONE (00:01)
[2021-07-30] MEDS ORDERED: fentaNYL 100 MCG/2 ML VIAL ONE (00:01)
[2021-07-30] MEDS ORDERED: LIDOCAINE-PF 2% 10 ML AMP SUBQ ONE (00:01)
[2021-07-30] MEDS ORDERED: SODIUM CHLORIDE FLUSH 0.9% 10 ML SYRINGE IVP SCH (01:00)
[2021-07-30] MEDS ORDERED: WITCH HAZEL/GLYCERIN 1 PAD TOP PRN (01:05)
[2021-07-30] MEDS ORDERED: HYDROCORTISONE 1% CREAM 28 GM TUBE PR PRN (01:05)
--- NOTE | 2021-07-30 01:13 | HISTORY & PHYSICAL EXAMINATION ---
Admit History - Visit Reason Visit Reason: Contractions - : 3 Parity: 1 Premature: 0 Ectopic: 0 : 1 Care: positive: [facility] Risk/History: positive: Gestational diabetes, Pre-eclampsia Complications This : positive: None Smoking Status: Never smoker - Mother's Labs Mother's Blood Type: positive: O Mother's RH: positive: Positive GBS: positive: Group B Step Negative Rubella Status: positive: Immune Meds/Allgy - Home Medications Home Medications: Ambulatory Orders Medication Instructions Recorded Confirmed Meclizine HCl [Antivert] 25 mg PO PRN PRN 01/21/21 01/21/21 Ondansetron Odt [Zofran Odt] 4 mg TL Q6H PRN 01/21/21 01/21/21 - Allergies Allergies/Adverse Reactions: Allergies Allergy/AdvReac Type Severity Reaction Status Date / Time No Known Drug Allergies Allergy Verified 01/21/21 21:24 Review of Systems - Constitutional Constitutional: denies: Fever, Chills, Malaise - Eyes Eyes: denies: Blurred vision, Spots in vision, Dipolpia - Cardiovascular Cariovascular: denies: Chest pain, Edema - Respiratory Respiratory: denies: Cough, SOB at rest - Neurological Neurological: denies: Headache Physical - Abdominal Exam Contraction Frequency (min/apart): 1-3 Contraction Intensity: positive: Strong Uterine Resting Tone: positive: Soft - Monitoring Heart Rate Baseline: 140 Strip Review: positive: Category I - Presentation Presentation: positive: Vertex - Vaginal Exam Membranes: positive: Membranes intact - Speculum Exam Speculum Exam Performed: positive: No Plan for Labor - Plan For Labor I expect patient to be DC'd or transferred within 96 hours.: Yes Plan for Labor: Ananya is a 31yo @ 39.2wks gestation by LMP c/w 7.2wk U/S who presented on 07/29/2021 with c/o contractions which have increased in frequency and in tensity throughout the day today. She denies vaginal bleeding or leakage of fluid and reports +FM. She is breathing through contractions and requests an epidural for pain management as soon as possible. She has been a patient of [facility] through the duration of her which has been complicated only by her hx of preeclampsia and therefore has been taking daily ASA 81mg since 12wks gestation and her blood pressure has remained WNL throughout this . She is also noted to have suspected macrosomia with EFW 99.5%tile on several ultrasounds this . She received pre-induction cervical ripening outpatient earlier this morning of 50mcg BC misoprostol and was monitored per protocol and then released with precautions. She is supported by her today. Dating Criteria: LMP 10/28/2020 Initial U/S @ 7.2wks c/w LMP dating HIPOLITO by LMP 08/04/2021 OB Hx: G1: 03/2018 SAB @6wks G2: 09/03/2019, @ 38wks, epidural, Male, 8lb3oz- complicated by A1GDM, preeclampsia, hyperemesis with poor weight gain, hypothyroidism (which resolved ) G3: Current PMHx: No significant Surgical Hx: none Social Hx: Never smoker. No ETOH or IVDA. 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 Family Hx: HTN - aunt, uncle; Melanoma - aunt, uncle; diabetes - MGM, PGM; CHD - PGF; Brain cancer - uncle course: HIPOLITO by LMP: 08/04/2021 Initial U/S: at 7.2wks c/w LMP for HIPOLITO 08/09/2021 FINAL HIPOLITO: 08/04/2021 O pos/Rubella immune VZV immune Gentic testing: discussed and declines FAS:FAS: Anterior placenta. MARIA INES 21.0-wnl. EFW 401g "upper 99%" (AC measuring 9 days ahead, all other measurements wnl). EFW measures at 20w5d (was 20.3 for exam) however is listed as 19.5 by DI at time of exam. Per [email or web address]'s biometry calculator 401g is the 83rd% for 20.3wks. 06/24/21 Cephalic presentation. MARIA INES 17.2cm. EFW 3145g. 99.5%tile . 07/21/2021 EFW 4086 (99.5th%tile); MARIA INES 17.8cm Glucola @ 26wks (Hx gstational diabetes)- 1HR 137 3HR WNL Flu: TDAP 05/12/21 COVID VACC- MODERNA #1 01/25 #2 02/2021 GBS & GC/CT at 36 weeks -negative HSV: denies self and partner Breast pump Rx 05/12/21 MOD: . Epidural. Had 2nd deg tear with 1st (Boy 8#[id number] - Cristiano). Boy: Gilson Amos pp contraception: vasectomy/condoms PAP: 05/2019 Physical Exam: Normocephalic, atraumatic Heart RRR w/o M/G/R Lungs CTAB Abdomen gravid, soft, nontender EFW 4200g SVE deferred secondary to pt discomfort and desire for epidural as soon as possible FHR baseline 140s, moderate variability, no accels, no decels Contractions palpate strong every 1-3 minutes with soft resting tone Bilateral LE's no edema Mood is good Assessment: 31yo @ 39.1wks gestation by LMP c/w 7.2wk U/S Active labor GBS neg FHR Category I Plan: Admit for expectant management Continuous monitoring Anesthesia notified for placement of epidural SVE when comfortable with epidural Anticipate .
--- NOTE | 2021-07-30 01:13 | DELIVERY NOTE ---
Delivery Note - Labor Labor: positive: Spontaneous - Delivery Method Delivery Method: positive: Spontaneous vaginal delivery - Cervical Ripening Method Cervical Ripening Method: positive: Misoprostil - Presentation Presentation: positive: JITENDRA - left occiput anterior - Nuchal Cord Nuchal Cord: positive: Present, Reduced - Amniotic Fluid Description Amniotic Fluid Description: positive: Clear - Episiotomy Type Episiotomy Type: positive: None - Laceration Laceration: positive: None - Suture Suture Type: positive: Vicryl Suture Size: positive: 2-0 - Delivery Outcome Delivery Outcome: positive: Livebirth - [place]: positive: Placed in direct skin contact with mother, Stimulated, Warmed, [place] used sex: positive: Male - Cord Cord: positive: 3 vessels - Placenta Placenta: positive: Intact, Spontaneous - Estimated Blood Loss Estimated Blood Loss (in cc): 200 - Post Delivery Events Post Delivery Events: positive: No post delivery events - Delivery Comments (Free Text/Narrative) Delivery Comments (Free Text/Narrative): Labor: This 31yo @ 39.2wks gestation by LMP c/w 7wk U/S presented in active on 07/29/2021. SVE was deferred secondary to pt discomfort and desire for placement of epidural. FHR pattern demonstrated Category I pattern throughout labor. Normal labor course. SROM occurred at 0001 and was noted to be a moderate amount of clear fluid. Epidural placed per maternal request. Pt progressed to c/c/+2 at 0012 with onset of pushing at 0022. : Normal of 4255g viable male on 07/30/2021 @ 0038. Nuchal cord x 1 was reduced. The was stimulated, dried, and placed skin to skin. Apgars were 8/9 at 1 and 5 minutes respectively. Pitocin administered via IV for hemostasis. The umbilical cord was allowed to stop pulsating at which time it was doubly clamped by CNM and cut by FOB. Cord blood was obtained. 3VC. Fundal massage and gentle cord traction applied for active management of the third stage. Placenta delivered spontaneously and intact at 0043. EBL 200mL. Fourth stage: Uterine fundus firm and there is no excessive bleeding. The perineum, vagina, and cervix were inspected and noted to have a 2nd degree perineal laceration which was repaired using a 2-[address]-1 needle in standard fashion and under sterile conditions. Vaginal and rectal exam following repair were completed. Tissues well approximated. Family bonding well. Both mother and baby were left in stable condition.
[2021-07-30] MEDS: IBUPROFEN 800 MG TABLET PO SCH ×4 (05:13→23:33)
[2021-07-30] MEDS: ACETAMINOPHEN 500 MG TABLET PO SCH ×2 (08:12→15:42)
[2021-07-30] MEDS: DOCUSATE SODIUM 100 MG CAPSULE PO SCH ×2 (08:13→23:07)
--- NOTE | 2021-07-30 16:05 | PROVIDER PROGRESS NOTE ---
Subjective - Subjective Subjective: S: Bonding well with baby. without difficulty. Bleeding decreased and is light. Pain is well controlled with oral medications and discomfort at perineum is improved with ice pack and witch gala. Her is supportive at the bedside. O: BP 106/80, T 36.7, HR 68, RR 18 Heart RRR w/o M/G/R, lungs CTAB, abdomen soft and nontender with fundus firm and U-1, perineum intact, light lochia rubra, bilateral LE's trace edema A: 31yo -->P2 day of delivery 2nd degree perineal laceration - intact P: Continue routine pp care and medications. Evaluate for discharge home tomorrow. Pt verbalized understanding and agrees to above plan. She denies further questions or concerns at this time. Objective - Vital Signs/Intake & Output Vital Signs: Vital Signs x48h Temp Pulse Resp BP Pulse Ox 07/30/21 13:15 36.7 C 68 18 106/80 98 Intake & Output: Intake & Output 07/27/21 07/28/21 07/29/21 07/30/21 23:59 23:59 23:59 23:59 Intake Total 512.0 925 Output Total 25 Balance 512.0 900 - Lab Results Fish Bones: 07/29/21 23:00 Other Labs: Lab Results x24hrs 07/29/21 07/29/21 Range/Units 23:00 23:00 WBC 12.8 H (4.8-10.8) x10^3/uL RBC 4.74 (4.20-5.40) 10^6/uL Hgb 11.6 L (12.0-16.0) g/dL Hct 37.7 (37.0-47.0) % MCV 79.5 L (81.0-99.0) fL MCH 24.5 L (27.0-31.0) pg MCHC 30.8 L (32.0-36.0) g/dL RDW 14.3 (12.0-15.0) % Plt Count 304 (130-450) 10^3/uL MPV 11.5 H (7.9-10.8) fL Neut # (Auto) 9.6 H (1.5-6.6) 10^3/uL Lymph # (Auto) 2.1 (1.5-3.5) 10^3/uL [place] # (Auto) 0.9 (0.0-1.0) 10^3/uL Eos # (Auto) 0.1 (0.0-0.7) 10^3/uL Baso # (Auto) 0.0 (0.0-0.1) 10^3/uL Absolute Nucleated RBC 0.00 x10^3/uL Nucleated RBC % 0.0 /100WBC Blood Type O POSITIVE Antibody Screen NEGATIVE
[2021-07-31] MEDS: ACETAMINOPHEN 500 MG TABLET PO SCH ×2 (00:59→08:54)
[2021-07-31] MEDS: IBUPROFEN 800 MG TABLET PO SCH ×2 (05:35→11:52)
--- NOTE | 2021-07-31 07:27 | Discharge Plan ---
Discharge Plan Problem Reviewed?: Yes Disposition: Home, Self Care Condition: Good Diet: Regular Activity Restrictions: No Restrictions Shower Restrictions: No Driving Restrictions: No Weight Bearing: Full Weight No Smoking: If you smoke, Please STOP! Call for help. Follow-up with: Bonnie Maldonado CNM, ARNP [Provider Admit Priv/Credential] -
--- NOTE | 2021-07-31 07:39 | DISCHARGE SUMMARY ---
Discharge Summary Condition at Discharge: Good Discharge Disposition: 01 Home, Self Care - HOSPITAL COURSE Hospital Course: Date of admission: 07/29/2021 Date of discharge: 07/31/2021 Diagnosis on admission: 1. 31yo @ 39.1wks gestation by LMP c/w 7.2wk U/S 2. Active labor 3. GBS neg 4. FHR Category I Diagnosis on admission: 1. 31yo PPD#1 s/p TSVD viable male 2. 2nd degree perineal laceration - intact 3. 4. normal recover Brief history: She is a patient of [facility] who presented on 07/29/2021 in active labor following 1 dose of 50mcg BC misoprostol outpatient previously that day. SVE was deferred initially secondary to pt discomfort and desire for epidural placement. Contractions were noted to be every 1-3 minutes with soft resting tone. SROM occurred at 0001 and was noted to be a moderate amount of clear fluid. Epidural placed per maternal request. Pt was noted to be c/c/+2 with onset of pushing at 0022. She progressed to deliver a viable male on 07/30/2021 at 0038. Apgars were 8/9 at 1 and 5 minutes respectively. EBL 200mL. Pt was noted to have a 2nd degree perineal laceration which was repaired in standard fashion and under sterile conditions. She has been doing well in her course. She is ambulating and tolerating a regular diet. She is urinating without difficulty and her lochia is normal. Her pain is well controlled with oral medications. She is without difficulty other than she is experiencing cracked nipples bilaterally. She feels the baby's latch is good but did not pay close attention to it on a couple of feeds over night. She will be discharged home today on day number 1 with instructions to continue taking ibuprofen and tylenol over the cou nter as needed for pain management, and to continue taking her vitamin while . I have also sent in an Rx for All-purpose nipple ointment to [facility] in [place] which she states has worked well for her in the past. She intends to follow up with myself at [facility] in 1 week for routine visit or sooner if needed. She has been given precautions to call if she has any worsening fevers, chills, abdominal pain, increased vaginal bleeding or foul smelling vaginal lochia. Physical Exam: Heart RRR w/o M/G/R, lungs CTAB, abdomen soft and nontender with fundus firm at U-2, perineum intact, repair with mild edema, light lochia rubra, bilateral LE's no edema, mood is good. - ALLERGIES Allergies/Adverse Reactions: Allergies Allergy/AdvReac Type Severity Reaction Status Date / Time No Known Drug Allergies Allergy Verified 07/31/21 00:42 - MEDICATIONS Home Medications: Ambulatory Orders Medication Instructions Recorded Confirmed Meclizine HCl [Antivert] 25 mg PO PRN PRN 01/21/21 01/21/21 Ondansetron Odt [Zofran Odt] 4 mg TL Q6H PRN 01/21/21 01/21/21 - LABS Result Diagrams: 07/29/21 23:00
[2021-07-31 07:53] VITALS: BP 107/80
[2021-07-31] MEDS: DOCUSATE SODIUM 100 MG CAPSULE PO SCH (08:55)
== END 2021-07-31 12:00 | disposition home or self-care (01) | DRG 807 ==
LOC: WFO 22:30 → FBP 22:32 → WFO 23:16 → FBP 23:17
PROVIDERS: ADMIT Nurse Practitioner Obstetrics & Gynecology; ATTEND Nurse Practitioner Obstetrics & Gynecology
PROC: 10E0XZZ Delivery of Products of Conception, External Approach (ICD-10-PCS; principal; 2021-07-30)
PROC: 0KQM0ZZ Repair Perineum Muscle, Open Approach (ICD-10-PCS; 2021-07-30)
DX: O70.1 Second degree perineal laceration during delivery (principal); Z37.0 Single live birth; O69.81X0 Labor and delivery complicated by cord around neck, without compression, not applicable or unspecified; Z3A.39 39 weeks gestation of pregnancy; O92.12 Cracked nipple associated with the puerperium; Z34.83 Encounter for supervision of other normal pregnancy, third trimester
CPT/HCPCS: 59025; 85025; 86850; 86900; 86901; A9270; J7120; 99212

== ENCOUNTER 2021-08-02 10:20 | Emergency (ER) | payer OTHER ==
[2021-08-02 10:45] VITALS: BP 134/98
[2021-08-02] MEDS ORDERED: DEXAMETHASONE 10 MG/ML VIAL PO STA (11:28)
[2021-08-02] MEDS ORDERED: KETOROLAC 60 MG/2 ML VIAL IM STA (11:29)
[2021-08-02] MEDS: CHERRY SYRUP 10 ML UDC PO ONE ×2 (11:36→11:40)
--- NOTE | 2021-08-02 11:56 | XRAY Report ---
PROCEDURE: Shoulder 3 View RT INDICATIONS: pain to supraspinatous TECHNIQUE: 3 views of the shoulder were acquired. COMPARISON: None. FINDINGS: Bones: No fractures or dislocations. No suspicious bony lesions. Visualized ribs appear intact. Soft tissues: No suspicious soft tissue calcifications. The visualized lung demonstrates a normal a ppearance. IMPRESSION: Normal plain films. If it would be helpful for clinical management decision making, please consider a dedicated, schedule d shoulder MRI for further evaluation (assuming that there is no contraindication). Reviewed by: Kem Spring MD on 08/02/2021 10:55 AM JUDITH Approved by: Kem Spring MD on 08/02/2021 10:55 AM JUDITH Station ID: [id number]
--- NOTE | 2021-08-02 12:17 | ED Physician Documentation ---
PD HPI UPPER EXT INJURY - Stated complaint Stated Complaint: RT SHOULDER PX - Chief complaint Chief Complaint: Ext Problem - History obtained from History obtained from: Patient - History of Present Illness Location: Right, Shoulder Type of injury: Other (fell asleep on the shoulder last night bad pain this morning) Where injury occurred: Other (hosptial bed next to daughter) Timing - onset: Last night Timing - duration: Hours Timing - details: Abrupt onset, Still present Improved by: Rest Worsened by: Moving, Palpating Associated symptoms: No: Weakness, Numbness, Tingling, Swelling, Discolored Contributing factors: No: Anticoagulated Similar symptoms before: No diagnosis (resolved itself) Recently seen: Other (delivered baby 2 dasys ago.) - Additonal information Additional information: 31-year-old female delivered her baby 2 days ago fell asleep hard on her right side and is complaining of pain in her right shoulder. She has no pain that she is not able to hold her baby. She has pain with movement to certain areas of her range of motion. She is not having swelling and she did not have a forceful injury of the area. She has had some similar symptoms previously from falling asleep on her shoulder wrong and these were self resolving over a period of a day. Review of Systems Constitutional: denies: Fever Eyes: denies: Decreased vision Ears: denies: Ear pain Nose: denies: Congestion Throat: denies: Sore throat Cardiac: denies: Chest pain / pressure Respiratory: denies: Cough GI: denies: Vomiting PD PAST MEDICAL HISTORY - Past Medical History Past Medical History: No Cardiovascular: None Respiratory: None Neuro: None Endocrine/Autoimmune: None GI: None : None Musculoskeletal: None Derm: None - Past Surgical History Past Surgical History: No - Present Medications Home Medications: Ambulatory Orders Medication Instructions Recorded Confirmed Meclizine HCl [Antivert] 25 mg PO PRN PRN 01/21/21 01/21/21 Ondansetron Odt [Zofran Odt] 4 mg TL Q6H PRN 01/21/21 01/21/21 traMADol [Ultram] 50 - 100 mg PO Q6H PRN #20 tablet 08/02/21 - Allergies Allergies/Adverse Reactions: Allergies Allergy/AdvReac Type Severity Reaction Status Date / Time No Known Drug Allergies Allergy Verified 08/02/21 10:44 - Social History Does the pt smoke?: No Smoking Status: Never smoker Does the pt drink ETOH?: Yes Does the pt have substance abuse?: No - Immunizations Immunizations are current?: Yes - POLST Patient has POLST: No PD ED PE NORMAL - Vitals Vital signs reviewed: Yes (Hypertensive) - General General: Alert and oriented X 3 (Hypertensive), Well developed/nourished, Other (31-year-old female with tears in her eyes is favoring her right shoulder) - HEENT HEENT: Atraumatic, PERRL, EOMI - Neck Neck: Supple, no meningeal sign, No bony TTP - Respiratory Respiratory: No respiratory distress - Derm Derm: Normal color, Warm and dry, No rash - Extremities Extremities: No deformity, No edema, Other (Patient is able to hold her arm in abduction and there is no pain to movement of the shoulder passively she does have some pain with supraspinatus with certain movements.) - Neuro Neuro: Alert and oriented X 3, 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, No motor deficit, No sensory deficit, Normal speech Eye Opening: Spontaneous Motor: Obeys Commands Verbal: Oriented GCS Score: 15 - Psych Psych: Normal mood, Normal affect Results - Vitals Vitals: Vital Signs - 24 hr 08/02/21 10:41 Temperature 36.4 C L Heart Rate 81 Respiratory 16 Rate Blood Pressure 134/98 H O2 Saturation 99 Oxygen O2 Source Room air - Rads (name of study) shoulder R Radiology: Prelim report reviewed (Impression: Normal plain films.), EMP read indepedently, See rad report PD MEDICAL DECISION MAKING - ED course Complexity details: reviewed results, re-evaluated patient, considered differential, d/w patient ED course: 31-year-old female has fallen asleep on her right shoulder has significant pain today associated with any movement. An x-ray does not demonstrate any evidence of calcific tendinitis or abnormality to the bone itself. The patient is treated symptomatically with dexamethasone and Toradol with improvement. Departure - Departure Disposition: 01 Home, Self Care Clinical Impression: Bursitis and tendinitis of shoulder region Condition: Stable Instructions: ED Bursitis Follow-Up: Venecia Pearce PA-C [Primary Care Provider] - Prescriptions: traMADol [Ultram] 50 - 100 mg PO Q6H PRN #20 tablet PRN Reason: Pain Discharge Date/Time: 08/02/21 12:36
== END 2021-08-02 12:36 | disposition home or self-care (01) ==
LOC: ED 10:20
DX: O90.89 Other complications of the puerperium, not elsewhere classified (principal); M75.51 Bursitis of right shoulder; M75.81 Other shoulder lesions, right shoulder
CPT/HCPCS: 96372; 99283

== ENCOUNTER 2021-09-18 16:30 | Outpatient (CLI) | payer OTHER ==
[2021-09-18 19:13] LABS: BACTERIAL VAGINOSIS DNA NEGATIVE (NEGATIVE); CANDIDA GLABRATA DNA NEGATIVE (NEGATIVE); CANDIDA GROUP DNA NEGATIVE (NEGATIVE); CANDIDA KRUSEI DNA NEGATIVE (NEGATIVE); TRICHOMONAS VAGINALIS DNA NEGATIVE (NEGATIVE)
== END 2021-09-18 16:31 | disposition home or self-care (01) ==
LOC: LAB.R 16:30
PROVIDERS: ATTEND Nurse Practitioner Obstetrics & Gynecology
DX: N89.8 Other specified noninflammatory disorders of vagina (principal)
CPT/HCPCS: 87661; 87801

== ENCOUNTER 2022-08-14 17:09 | Outpatient (CLI) | payer OTHER | END 2022-08-14 23:59 | disposition home or self-care (01) | LOC: LAB.N 17:09 | PROVIDERS: ATTEND Registered Nurse | DX: R30.0 Dysuria (principal) | CPT/HCPCS: 87086 ==